=== PATIENT | female | born 1990 | race Caucasian/White ===

== ENCOUNTER → 2018-05-29 | Outpatient (CLI) | payer BC ==
--- NOTE | 2018-05-29 12:40 | RAD ---
Single frontal view pelvis Indication: PAIN IN LEFT HIP Comparison: None. Impression: No acute fracture. Minimal joint space narrowing bilateral hips. Mild levocurvature lumbar spine. Mild pubic symphysis osteoarthritis. Electronically signed by: Parish Ibarra MD 05/29/2018 12:39 PM [facility]
--- NOTE | 2018-05-29 12:40 | RAD ---
4 view left knee Indication: PAIN IN LEFT KNEE Comparison: None. Impression: No acute fracture, malalignment, or advanced osteoarthritis. Tiny effusion. MRI could better evaluate for internal derangement as clinically indicated. Electronically signed by: Parish Ibarra MD 05/29/2018 12:38 PM [facility]
== END ==
LOC: RAD 08:40
PROVIDERS: ATTEND Orthopaedic Surgery
DX: M25.562 Pain in left knee (principal); M25.552 Pain in left hip